=== PATIENT | male | born 1975 | race Caucasian/White ===

== ENCOUNTER 2021-02-07 16:27 | Observation (INO) | payer BC ==
[2021-02-07 17:00] LABS: Absolute Lymphocytes (CBC) 2.2 K/uL (0.7-4.9); Basophils % 1.3 % (0-1.3); Hematocrit 38.6 % (39.6-49.0); Lymphocytes % 31.1 % (15.3-44.8); MPV 9.5 fL (7.6-11.3); RBC Red Blood Cell Count 4.44 M/uL (4.33-5.43)
[2021-02-07 17:05] LABS: Protime INR 1.08
[2021-02-07 17:10] LABS: Urine Blood Negative (Negative); Urine Glucose 1+ (Negative); Urine Protein Negative (Negative); Urine Specific Gravity 1.025 (1.005-1.030); Urine pH 5.5 (5.0-7.0)
[2021-02-07 17:18] LABS: Albumin 4.2 g/dL (3.4-5.0); Bilirubin Direct 0.2 mg/dL (0-0.2); Bilirubin Total 0.7 mg/dL (0.2-1.0); Magnesium 1.8 mg/dL (1.8-2.4); Potassium 3.2 mmol/L (3.5-5.1); Protein, Total 7.4 g/dL (6.4-8.2); Troponin (Emerg Dept Use Only) 0.02 ng/mL (0.0-0.045)
[2021-02-07] MEDS ORDERED: ASPIRIN 81 MG CHEWABLE TABLET ONE (17:23)
[2021-02-07] MEDS ORDERED: NA CHLORIDE 0.9% 1,000 ML ONE ×2 (17:24→19:08)
[2021-02-07 17:25] LABS: Barbiturates NEGATIVE (NEGATIVE); Benzodiazepines NEGATIVE (NEGATIVE); Cocaine NEGATIVE (NEGATIVE); METHAMPHETAM NEGATIVE (NEGATIVE); Methadone NEGATIVE (NEGATIVE); Opiates NEGATIVE (NEGATIVE); Phencyclidine NEGATIVE (NEGATIVE); THC Cannibis NEGATIVE (NEGATIVE)
[2021-02-07 17:40] LABS: T3 Free 3.27 pg/mL (2.18-3.98); Thyroid Stimulating Hormone 0.74 uIU/mL (0.360-3.740)
--- NOTE | 2021-02-07 18:17 | RAD REPORT ---
EXAM DESCRIPTION: RAD - Chest Single View - 02/07/2021 5:23 pm CLINICAL HISTORY: PALPITATIONS COMPARISON: None TECHNIQUE: AP portable chest image was obtained 02/07/2021 5:23 pm . FINDINGS: Lungs are clear. Heart and vasculature are normal. No measurable pleural effusion and no p neumothorax. No acute bony abnormality seen. No acute aortic findings suspected. IMPRESSION: No acute cardiopulmonary process.
[2021-02-07] MEDS ORDERED: POTASSIUM 25 MEQ EFFERV TAB ONE (18:26)
--- NOTE | 2021-02-07 18:44 | ER ---
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 Coronavirus tc5 screen: Vaccine status: Patient reports being unvaccinated. At this time, the client does not indicate any symptoms associated with coronavirus-19. Ebola Screen: No symptoms or risks identified at this time. Risk Assessment: Do you want to hurt yourself or someone else? Patient reports no desire to harm self or others. Onset of symptoms was February 07, 2021 at 15:30. Care prior to arrival: 20g LAC per EMS. 17:39 Method Of Arrival: EMS: [facility] tc5 17:39 Acuity: GISSELLE 3 tc5 Triage Assessment: 17:44 General: Appears in no apparent distress. Behavior is calm, cooperative, appropriate tc5 for age. Pain: Denies pain. Historical: - Allergies: 17:42 PENICILLINS; tc5 17:42 Aleve; tc5 - PMHx: 17:42 Hypertensive disorder; Diabetes mellitus; tc5 17:43 Hypercholesterolemia; tc5 - Immunization history:: Adult Immunizations up to date, Client reports having NOT received the Covid vaccine. Last tetanus immunization: up to date. - Social history:: Smoking status: Patient reports use of chewing tobacco. Patient denies any tobacco usage or history of. Screenin:46 Abuse screen: Denies threats or abuse. Denies injuries from another. Nutritional tc5 screening: No deficits noted. Tuberculosis screening: No symptoms or risk factors identified. Fall Risk None identified. Assessment: 17:46 Reassessment: Patient appears in no apparent distress at this time. No changes from tc5 previously documented assessment. 19:38 Reassessment: Pt sitting up in bed, waiting further orders. VSS, pt voices no needs at dc2 this time. Continue to monitor. In nad. at side. 20:58 Reassessment: Attempt to call report , Ory is unavailable and will call back. dc2 Vital Signs: 17:39 BP 146 / 89; Pulse 100; Resp 18; Temp 98.4; Pulse Ox 100% ; Weight 90.72 kg; Height 6 tc5 ft. 3 in. (190.50 cm); Pain 0/10; 17:45 BP 135 / 91; Pulse 90; Resp 16; Pulse Ox 97% ; tc5 20:00 BP 138 / 94; Pulse 81; Resp 17; Temp 98.0; Pulse Ox 100% ; Pain 0/10; dc2 22:00 BP 139 / 85; Pulse 79; Resp 18; Temp 98.0; Pulse Ox 99% ; Pain 0/10; dc2 17:39 Body Mass Index 25.00 (90.72 kg, 190.50 cm) tc5 ED Course: 16:37 Patient arrived in ED. eb 16:37 Kd Burks PA is PHCP. cp 16:37 Robin Olsen MD is Attending Physician. cp 16:45 Mary Cha RN is Primary Nurse. tc5 17:23 XRAY Chest (1 view) In Process Unspecified. EDMS 17:37 Basic Metabolic Panel Sent. tc5 17:41 Triage completed. tc5 18:43 Cory Keith PA is Hospitalizing Provider. cp 19:38 Patient has correct armband on for positive identification. Placed in gown. Bed in low dc2 position. Call light in reach. Side rails up X 1. 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 Pulse ox on. NIBP on. 19:38 Door closed. Lights dimmed. dc2 19:38 Arm band placed on. dc2 21:00 No apparent distress. dc2 21:00 Awaiting bed assignment. Room 218. dc2 22:01 No provider procedures requiring assistance completed. dc2 22:01 IV Converted IV to saline lock on left antecubital area dc2 Administered Medications: 17:00 Drug: Aspirin Chewable Tablet 324 mg Route: PO; tc5 18:38 Follow up: Response: No adverse reaction tc5 17:00 Drug: NS 0.9% 1000 ml Route: IV; Rate: 1 bolus; Site: left antecubital; tc5 18:38 Follow up: IV Status: Completed infusion; IV Intake: 1000ml tc5 18:01 Drug: Potassium Effervescent Tablet 50 mEq Route: PO; tc5 18:38 Follow up: Response: No adverse reaction tc5 18:47 Drug: NS 0.9% 1000 ml Route: IV; Rate: 1000 ml/hr; Site: left antecubital; tc5 19:47 Follow up: IV Status: Completed infusion; IV Intake: 1000ml dc2 Intake: 18:38 IV: 1000ml; Total: 1000ml. tc5 19:47 IV: 1000ml; Total: 2000ml. dc2 Outcome: 18:43 Decision to Hospitalize by Provider. cp 22:00 Admitted to Tele accompanied by tech, via wheelchair, room 218, with chart, Report dc2 called to Ory 22:00 Condition: stable 22:00 Instructed on the need for admit. 22:01 Patient left the ED. dc2 Signatures: Dispatcher [employer] EDMS Kd Burks PA PA cp Botello, Elizabeth eb Charters, Denise, RN RN dc2 Mary Cha RN RN tc5
--- NOTE | 2021-02-07 18:44 | EDPHYS ---
Physician Documentation [facility] Name: Cordell Jurado Age: 45 yrs Sex: Male : 1975 Arrival Date: 02/07/2021 Time: 16:37 Bed 17 Private MD: ED Physician Robin Olsen HPI: 02/07 16:45 This 45 yrs old Male presents to ER via EMS with complaints of Dizziness and cp Palpitations. 16:45 The patient presents with a history of heart racing. Context: The symptoms occur while cp walking at work. Onset: The symptoms/episode began/occurred just prior to arrival. Duration: The patient or guardian reports a single episode, that is still ongoing, but improving. Associated signs and symptoms: Pertinent positives: near-syncope, dizziness, Pertinent negatives: chest pain, cough, fever, SOB, vomiting. Severity of symptoms: in the emergency department the symptoms have improved mildly. Historical: - Allergies: 17:42 PENICILLINS; tc5 17:42 Aleve; tc5 - PMHx: 17:42 Hypertensive disorder; Diabetes mellitus; tc5 17:43 Hypercholesterolemia; tc5 - Immunization history:: Adult Immunizations up to date, Client reports having NOT received the Covid vaccine. Last tetanus immunization: up to date. - Social history:: Smoking status: Patient reports use of chewing tobacco. Patient denies any tobacco usage or history of. ROS: 16:47 Constitutional: Negative for body aches, chills, fever, poor PO intake. cp 16:47 Eyes: Negative for injury, pain, redness, and discharge. cp 16:47 ENT: Negative for ear pain, sore throat, difficulty swallowing, difficulty handling secretions. 16:47 Cardiovascular: Positive for palpitations, Negative for chest pain, edema. 16:47 Respiratory: Negative for cough, shortness of breath, wheezing. 16:47 Abdomen/GI: Negative for abdominal pain, nausea, vomiting, and diarrhea, black/tarry stool, rectal bleeding. 16:47 Neuro: Positive for dizziness, near syncope, Negative for altered mental status, speech changes, weakness. 16:47 All other systems are negative. Exam: 16:48 ECG was reviewed by the Attending Physician. cp 16:50 Constitutional: The patient appears in no acute distress, alert, awake, cp non-diaphoretic, non-toxic, well developed, well nourished. 16:50 Head/Face: Normocephalic, atraumatic. cp 16:50 Eyes: Periorbital structures: appear normal, Pupils: equal, round, and reactive to light and accomodation, Extraocular movements: intact throughout, Conjunctiva: normal, no exudate, no injection, Sclera: no appreciated abnormality, Lids and lashes: appear normal, bilaterally. 16:50 ENT: External ear(s): are unremarkable, Nose: is normal, Mouth: Lips: moist, Oral mucosa: pink and intact, moist, Posterior pharynx: Airway: no evidence of obstruction, patent. 16:50 Neck: ROM/movement: is normal, is supple, without pain, no range of motions limitations, no nuchal rigidity. 16:50 Chest/axilla: Inspection: normal, Palpation: is normal, no crepitus, no tenderness. 16:50 Cardiovascular: Rate: tachycardic, Rhythm: regular, Heart sounds: murmur, not appreciated, Edema: is not appreciated, JVD: is not appreciated. 16:50 Respiratory: the patient does not display signs of respiratory distress, Respirations: normal, no use of accessory muscles, no retractions, labored breathing, is not present, Breath sounds: are clear throughout, no decreased breath sounds, no stridor, no wheezing. 16:50 Abdomen/GI: Inspection: abdomen appears normal, Palpation: abdomen is soft and non-tender, in all quadrants. 16:50 Back: pain, is absent, ROM is normal. 16:50 Neuro: Orientation: to person, place \T\ time. Mentation: is normal, Cerebellar function: is grossly normal, Motor: moves all fours, strength is normal, Sensation: is normal. Vital Signs: 17:39 BP 146 / 89; Pulse 100; Resp 18; Temp 98.4; Pulse Ox 100% ; Weight 90.72 kg; Height 6 tc5 ft. 3 in. (190.50 cm); Pain 0/10; 17:45 BP 135 / 91; Pulse 90; Resp 16; Pulse Ox 97% ; tc5 20:00 BP 138 / 94; Pulse 81; Resp 17; Temp 98.0; Pulse Ox 100% ; Pain 0/10; dc2 22:00 BP 139 / 85; Pulse 79; Resp 18; Temp 98.0; Pulse Ox 99% ; Pain 0/10; dc2 17:39 Body Mass Index 25.00 (90.72 kg, 190.50 cm) tc5 MDM: 16:42 Patient medically screened. cp 17:00 Differential diagnosis: arrythmia, stress disorder, acute HI. cp 18:45 Data reviewed: vital signs, nurses notes, lab test result(s), EKG, radiologic studies, cp plain films. 18:45 Test interpretation: by ED physician or midlevel provider: ECG, plain radiologic cp studies. Counseling: I had a detailed discussion with the patient and/or guardian regarding: the historical points, exam findings, and any diagnostic results supporting the discharge/admit diagnosis, lab results, radiology results, the need for further work-up and treatment in the hospital. Physician consultation: Cory MEEK was called at 18:35, was contacted at 18:35, regarding admission, to the telemetry unit. patient's condition, and will see patient in ED, shortly. 02/07 16:38 Order name: Basic Metabolic Panel cp 02/07 16:38 Order name: CBC with Diff; Complete Time: 17:36 cp 02/07 17:36 Interpretation: Normal except: HGB 13.4; HCT 38.6. cp 02/07 16:38 Order name: LFT's; Complete Time: 17:36 cp 02/07 16:38 Order name: Magnesium; Complete Time: 17:36 cp 02/07 16:38 Order name: NT PRO-BNP; Complete Time: 17:36 cp 02/07 16:38 Order name: PT-INR; Complete Time: 17:36 cp 02/07 16:38 Order name: Troponin (emerg Dept Use Only); Complete Time: 17:36 cp 02/07 16:38 Order name: CK; Complete Time: 17:36 cp 02/07 17:36 Interpretation: Abnormal: CPK 403. cp 02/07 16:39 Order name: Basic Metabolic Panel; Complete Time: 17:36 EDMS 02/07 17:36 Interpretation: Normal except: K 3.2; GLUC 178; GFR 69. cp 02/07 16:42 Order name: UDS; Complete Time: 17:36 cp 02/07 16:58 Order name: TSH; Complete Time: 18:31 cp 02/07 16:58 Order name: T3 Free; Complete Time: 18:31 cp 02/07 16:58 Order name: D-Dimer; Complete Time: 17:36 cp 02/07 16:38 Order name: XRAY Chest (1 view); Complete Time: 18:31 cp 02/07 16:38 Order name: EKG; Complete Time: 16:39 cp 02/07 16:38 Order name: Cardiac monitoring; Complete Time: 16:46 cp 02/07 16:38 Order name: EKG - Nurse/Tech; Complete Time: 16:46 cp 02/07 16:38 Order name: IV Saline Lock; Complete Time: 16:46 cp 02/07 16:38 Order name: Labs collected and sent; Complete Time: 16:46 cp 02/07 16:38 Order name: O2 Per Protocol; Complete Time: 16:46 cp 02/07 16:38 Order name: O2 Sat Monitoring; Complete Time: 16:46 cp 02/07 16:38 Order name: Accucheck Blood Glucose; Complete Time: 18:47 cp 02/07 17:10 Order name: Urine Dipstick-Ancillary; Complete Time: 17:36 EDMS 02/07 17:17 Order name: SARS-COV-2 RT PCR; Complete Time: 18:31 EDMS 02/07 18:54 Order name: CONS Physician Consult EDMS EC:48 Rate is 110 beats/min. Rhythm is regular. FL interval is normal. QRS interval is cp normal. QT interval is normal. Interpreted by me. Reviewed by me. Administered Medications: 17:00 Drug: Aspirin Chewable Tablet 324 mg Route: PO; tc5 18:38 Follow up: Response: No adverse reaction tc5 17:00 Drug: NS 0.9% 1000 ml Route: IV; Rate: 1 bolus; Site: left antecubital; tc5 18:38 Follow up: IV Status: Completed infusion; IV Intake: 1000ml tc5 18:01 Drug: Potassium Effervescent Tablet 50 mEq Route: PO; tc5 18:38 Follow up: Response: No adverse reaction tc5 18:47 Drug: NS 0.9% 1000 ml Route: IV; Rate: 1000 ml/hr; Site: left antecubital; tc5 19:47 Follow up: IV Status: Completed infusion; IV Intake: 1000ml dc2 Disposition Summary: 02/07/21 18:43 Hospitalization Ordered Hospitalization Status: Observation cp Provider: Cory Keith cp Condition: Stable cp Problem: new cp Symptoms: have improved cp Bed/Room Type: Standard cp Location: Telemetry/MedSurg (observation)(02/07/21 19:42) Room Assignment: 218(02/07/21 19:42) mw Diagnosis - Syncope Near cp - Palpitations cp Forms: - Medication Reconciliation Form cp - SBAR form cp Addendum: 02/11/2021 01:56 Co-signature as Attending Physician, Robin Olsen MD I agree with the assessment and r n plan of care. Attestation: The patient's history, exam findings, diagnostics, and a summary of any interventions or procedures was reviewed in detail with Kd MEEK. Signatures: Dispatcher [employer] EDAK Shahnaz Harry RN RN mw Nieto, Roman, MD MD rn Page, Corey, PA PA cp Cassaboom, Theresa, RN RN tc5 Rick, Lucy RN dc2 Corrections: (The following items were deleted from the chart) 02/07 17:17 16:40 CORONAVIRUS+MR.LAB.BRZ ordered. EDAK EDAK 19:42 18:43 Telemetry/MedSurg (observation) [facility] 19:42 18:43 cp 02/08 04:35 02/07 16:55 This 45 yrs old Male presents to ER via EMS with complaints of cp Dizziness and Palpitations. cp
--- NOTE | 2021-02-07 19:56 | P.HP ---
Certification for Inpatient Patient admitted to: Observation With expected LOS: <2 Midnights Patient will require the following post-hospital care: None Practitioner: I am a practitioner with admitting privileges, knowledge of patient current condition, hospital course, and medical plan of care. Services: Services provided to patient in accordance with Admission requirements found in Title 42 Section 412.3 of the Code of Federal Regulations Patient History Date of Service: 02/07/21 Primary Care Provider: Antonio Reason for admission: palpitations, presyncope History of Present Illness: Mr. Jurado is a 45 yo M with DM, HTN, HLD who presents with an episode of palpitations and presyncope. He said he was walking when he got dizzy and his vision went black for half a second. He felt disoriented and short of breath. He sat down and symptoms improved after a few minutes. He says he felt 6-8 abnormal heart beats and the entire episode lasted 3 minutes. This has happened in the past but never this severe. Denies chest pain, nausea, vomiting. He does work outside, but drinks several bottles of water daily at the [employer]. K 3.2, Glu 178, CK 403. Received ASA, potassium and IVF in the ED. - Past Medical/Surgical History -: HTN -: DM -: HLD -: torn bicep -: hernia repair - Family History Mother -: Diabetes Father -: Heart disease, Diabetes, Cancer - Social History Smoking Status: Current every day smoker (chews tobacco) Alcohol use: Yes CD- Drugs: No Caffeine use: Yes Place of Residence: Home Review of Systems 10-point ROS is otherwise unremarkable Respiratory: Shortness of Breath Cardiovascular: Palpitations, Light Headedness Physical Examination - Physical Exam General: Alert, In no apparent distress HEENT: Atraumatic, PERRLA, Mucous membr. moist/pink, EOMI, Sclerae nonicteric Neck: Supple, 2+ carotid pulse no bruit, No LAD, Without JVD or thyroid abnormality Respiratory: Clear to auscultation bilaterally, Normal air movement Cardiovascular: Regular rate/rhythm, Normal S1 S2 Gastrointestinal: Normal bowel sounds, No tenderness Musculoskeletal: No tenderness Integumentary: No rashes Neurological: Normal gait, Normal speech, Normal strength at 5/5 x4 extr, Normal tone, Normal affect Lymphatics: No axilla or inguinal lymphadenopathy - Studies Laboratory Data (last 24 hrs) 02/07/21 16:45: PT 12.4, INR 1.08 02/07/21 16:45: WBC 7.20, Hgb 13.4 L, Hct 38.6 L, Plt Count 207 02/07/21 16:45: Sodium 140, Potassium 3.2 L, BUN 16, Creatinine 1.16, Glucose 178 H, Magnesium 1.8, Total Bilirubin 0.7, AST 19, ALT 45, Alkaline Phosphatase 50 Assessment and Plan - Problems (Diagnosis) (1) Palpitations Current Visit: Yes Status: Acute (2) HTN (hypertension) Current Visit: Yes Status: Chronic Qualifiers: Hypertension type: primary hypertension Qualified Code(s): I10 - Essential (primary) hypertension (3) T2DM (type 2 diabetes mellitus) Current Visit: Yes Status: Chronic Qualifiers: Diabetes mellitus fdc insulin use: without fdc use Diabetes mellitus complication status: without complication Qualified Code(s): E11.9 - Type 2 diabetes mellitus without complications (4) HLD (hyperlipidemia) Current Visit: Yes Status: Chronic Qualifiers: Hyperlipidemia type: unspecified Qualified Code(s): E78.5 - Hyperlipidemia, unspecified - Plan on tele, cardiology consulted orthostatics VS now, trend troponins, repeat ekg hydralazine PRN for BP potassium replacement protocol reconcile and continue home medications DVT ppx Discharge Plan: Home Plan to discharge in: 24 Hours - Advance Directives Does patient have a Living Will: No Does patient have a Durable POA for Healthcare: No - Code Status/Comfort Care Code Status Assessed: Yes (full code ) Critical Care: No Time Spent Managing Pts Care (In Minutes): 70
[2021-02-07 22:17] VITALS: BMI 31.5
[2021-02-07] MEDS ORDERED: ACETAMINOPHEN 500 MG TAB PO PRN (22:23)
[2021-02-07] MEDS ORDERED: HYDRALAZINE HCL 20 MG/ML VIAL IV PRN (22:23)
[2021-02-07] MEDS ORDERED: FEXOFENADINE 180 MG TAB PO PRN (22:23)
[2021-02-07] MEDS ORDERED: ONDANSETRON 4 MG/2 ML VIAL IV PRN (22:23)
[2021-02-07] MEDS ORDERED: METFORMIN HCL 500 MG TAB PO ONE (22:23)
[2021-02-07 22:35] VITALS: O2SAT 99
[2021-02-08 04:05] LABS: Absolute Lymphocytes (CBC) 2.3 K/uL (0.7-4.9); Basophils % 1.2 % (0-1.3); Hematocrit 36.2 % (39.6-49.0); Lymphocytes % 37.7 % (15.3-44.8); MPV 9.6 fL (7.6-11.3); RBC Red Blood Cell Count 4.18 M/uL (4.33-5.43)
[2021-02-08 04:28] LABS: Albumin 3.7 g/dL (3.4-5.0); Bilirubin Total 0.4 mg/dL (0.2-1.0); CKMB Creatine Kinase MB 1.4 ng/mL (1.0-3.6); Phosphorus 4.1 mg/dL (2.5-4.9); Potassium 3.4 mmol/L (3.5-5.1); Protein, Total 6.6 g/dL (6.4-8.2)
--- NOTE | 2021-02-08 07:05 | EKG ---
Test Date: 2021-02-07 Test Time: 16:41:05 Gear Cutting Machine Operator: LAKISHA MEASUREMENT RESULTS: Intervals: Rate: 118 MI: 182 QRSD: 94 QT: 314 QTc: 440 [place]: P: 57 MI: 182 QRS: 59 T: -52 INTERPRETIVE STATEMENTS: Sinus tachycardia Inferior infarct, age undetermined Cannot rule out Anterior infarct, age undetermined Abnormal ECG Compared to ECG 02/07/2021 16:39:47 Myocardial infarct finding now present Electronically Signed On 02-08-21 07:04:31 CDT by Ej Marina
--- NOTE | 2021-02-08 07:05 | EKG ---
Test Date: 2021-02-07 Test Time: 16:39:47 Tiller Man: LAKISHA MEASUREMENT RESULTS: Intervals: Rate: 112 TN: 192 QRSD: 96 QT: 324 QTc: 442 [place]: P: 50 TN: 192 QRS: 24 T: 16 INTERPRETIVE STATEMENTS: Sinus tachycardia Otherwise normal ECG Compared to ECG 12/28/1998 22:26:00 ST (T wave) deviation no longer present Electronically Signed On 02-08-21 07:04:32 CDT by Ej Marina
[2021-02-08] MEDS ORDERED: PNEUMOCOCCAL VACCINE 0.5 ML IMVAC ONE ×2 (08:00→12:00)
[2021-02-08] MEDS ORDERED: hydroCHLOROthiazide 25 MG TAB PO SCH (09:00)
[2021-02-08] MEDS ORDERED: ASPIRIN EC 81 MG TAB PO SCH (09:00)
[2021-02-08] MEDS ORDERED: ATORVASTATIN 40 MG TAB PO SCH (09:00)
[2021-02-08] MEDS ORDERED: lisinopriL 20 MG TAB PO SCH (09:00)
[2021-02-08] MEDS ORDERED: ENOXAPARIN 40 MG/0.4 ML SQ SCH (09:00)
[2021-02-08 10:06] VITALS: BP 154/84; TEMP 97.6
--- NOTE | 2021-02-08 10:51 | P.DS ---
Admission Date: 02/07/21 Discharge Date: 02/08/21 Primary Care Provider: Antonio Disposition: ROUTINE DISCHARGE Discharge Condition: FAIR Reason for Admission: palpitations, presyncope - Problems (1) Palpitations Status: Acute (2) HLD (hyperlipidemia) Status: Chronic Qualifiers: Hyperlipidemia type: unspecified Qualified Code(s): E78.5 - Hyperlipidemia, unspecified (3) HTN (hypertension) Status: Chronic Qualifiers: Hypertension type: primary hypertension Qualified Code(s): I10 - Essential (primary) hypertension (4) T2DM (type 2 diabetes mellitus) Status: Chronic Qualifiers: Diabetes mellitus residential insulin use: without moth exterminator use Diabetes mellitus complication status: without complication Qualified Code(s): E11.9 - Type 2 diabetes mellitus without complications Brief History of Present Illness: 45 yo M with DM, HTN, HLD presented with an episode of palpitations and presyncope. He got dizzy and his vision went black for half a second while walking. He felt disoriented and short of breath. He sat down and symptoms improved after a few minutes. He reported feeling abnormal heartbeat. Patient reported previous episodes in the past. He denied chest pain. Initial troponin. EKG demonstrated sinus tachycardia. Chest x-ray showed no acute disease. Patient placed under observation for further evaluation. Hospital Course: His troponin trended negative. Cardiac monitoring was unremarkable. Patient seen by cardiology. ACS ruled out. Dr. Marina plans to follow him as an outpatient for echocardiogram, stress test and event monitor. Patient's vitals are stable and currently has no complain. He is discharged to follow with Dr. Marina as planned. Vital Signs/Physical Exam: Temp Pulse Resp BP Pulse Ox 97.6 F 69 15 154/84 H 100 02/08/21 08:00 02/08/21 08:00 02/08/21 08:00 02/08/21 08:00 02/08/21 08:00 General: Alert, In no apparent distress, Oriented x3 HEENT: Mucous membr. moist/pink Neck: Supple, JVD not distended Respiratory: Clear to auscultation bilaterally, Normal air movement Cardiovascular: No edema, Regular rate/rhythm, Normal S1 S2 Gastrointestinal: Normal bowel sounds, Soft and benign, Non-distended, No tenderness Musculoskeletal: No swelling Integumentary: No rashes Neurological: Normal strength at 5/5 x4 extr Laboratory Data at Discharge: WBC 6.10 K/uL (4.3-10.9) D 02/08/21 02:57 Hgb 12.5 g/dL (13.6-17.9) L 02/08/21 02:57 Hct 36.2 % (39.6-49.0) L 02/08/21 02:57 Plt Count 168 K/uL (152-406) 02/08/21 02:57 PT 12.4 SECONDS (9.5-12.5) 02/07/21 16:45 INR 1.08 02/07/21 16:45 Sodium 142 mmol/L (136-145) 02/08/21 02:57 Potassium 3.4 mmol/L (3.5-5.1) L 02/08/21 02:57 BUN 13 mg/dL (7-18) 02/08/21 02:57 Creatinine 0.92 mg/dL (0.55-1.3) 02/08/21 02:57 Glucose 156 mg/dL (74-106) H 02/08/21 02:57 Phosphorus 4.1 mg/dL (2.5-4.9) 02/08/21 02:57 Magnesium 2.0 mg/dL (1.8-2.4) 02/08/21 02:57 Total Bilirubin 0.4 mg/dL (0.2-1.0) 02/08/21 02:57 AST 19 U/L (15-37) 02/08/21 02:57 ALT 38 U/L (12-78) 02/08/21 02:57 Alkaline Phosphatase 44 U/L (45-117) L 02/08/21 02:57 Troponin I 0.04 ng/mL (0.0-0.045) 02/08/21 02:57 Triglycerides 118 mg/dL (<150) 02/08/21 02:57 Cholesterol 99 mg/dL (<200) 02/08/21 02:57 HDL Cholesterol 34 mg/dL (40-60) L 02/08/21 02:57 Cholesterol/HDL Ratio 2.91 02/08/21 02:57 Home Medications: Atorvastatin Calcium 20 mg PO QPBBP3DA 02/08/21 Fexofenadine HCl [Debora Allergy] 180 mg PO DAILY 02/08/21 Lisinopril/Hydrochlorothiazide [Lisinopril-Hctz 20-12.5 mg Tab] 20 mg PO DAILY 02/08/21 Metformin HCl [Glumetza] 1,000 mg PO BID 02/08/21 Followup: RICHARDSON AMAYA-A [Primary Care Provider] - Ej Marina MD [ACTIVE - CAN ADMIT] - 1 Week (For arrangement for echocardiogram, stress test and event monitor.)
--- NOTE | 2021-02-08 12:44 | CON ---
Date of Consultation: 02/08/2021 Reason For Consultation: The patient came in with presyncope. History Of Present Illness: Mr. Jurado is a 45-year-old male with history of hypertension, diabetes, dyslipidemia, and a strong family history of heart disease. Came in with an episode of dizziness, l ightheadedness, presyncope. No nausea, vomiting, diaphoresis, PND, orthopnea, pedal edema, or palpit ation. Denied any chest pain. Has ruled out for an MD. His CPK was 403 with negative MB, negative troponin. Glucose was 178. He was hypokalemic at 3.2. Allergies: HE IS ALLERGIC TO PENICILLIN AND ALEVE. Review of Systems: Negative. Social History: Negative. Family History: Positive for heart disease in his dad and uncle. Medications: At home include lisinopril, metformin, and Zocor. Physical Examination: Vital Signs: Stable, afebrile. HEENT: Negative. Neck: Supple with no bruit. Chest: Clear. Cardiac: Revealed a regular rhythm and rate. No murmurs, gallops, or rubs. Abdomen: Benign. Extremities: Revealed no clubbing, cyanosis, or edema. Diagnostic Data: As stated earlier. EKG is normal. Chest x-ray is normal. Impression And Plan: Presyncope, most likely secondary to orthostatic hypotension. The episode happ ened when he was standing up. Could have been secondary to hypokalemia. He did have some palpitatio ns prior to his presyncopal episode. I think he needs to have an echocardiogram and outpatient MPI a nd outpatient event monitor. I would correct his potassium, hydrate him, consider use of a low-dose beta verito in addition to lisinopril. He can go home and I will see him as an outpatient in the [facility] near future. His blood pressure, diabetes, and dyslipidemia are fairly well controlled. NB/MODL Voice ID: [id number] Report ID: [id number]
== END 2021-02-08 11:45 | disposition home or self-care (01) ==
LOC: ER 16:27 → ERHOLD 18:51 → 2ND 21:48
PROVIDERS: ADMIT Internal Medicine; ATTEND Internal Medicine
DX: R00.2 Palpitations (principal); I95.1 Orthostatic hypotension; E87.6 Hypokalemia; I10 Essential (primary) hypertension; E11.9 Type 2 diabetes mellitus without complications; E78.5 Hyperlipidemia, unspecified; E78.00 Pure hypercholesterolemia, unspecified; F17.220 Nicotine dependence, chewing tobacco, uncomplicated; Z20.822 Contact with and (suspected) exposure to COVID-19; Z88.0 Allergy status to penicillin; Z88.6 Allergy status to analgesic agent; Z82.49 Family history of ischemic heart disease and other diseases of the circulatory system; Z83.3 Family history of diabetes mellitus; Z80.9 Family history of malignant neoplasm, unspecified
CPT/HCPCS: 96361; 93005 ×2; 85025 ×2; 80048; 36415; 83735 ×2; 82550 ×2; 84100; 85610; 80061; 82947 ×2; 85379; 80076; 84443; 81003; 84484 ×3; 82553; 84481; 84439; 80053; 83880; 80307; 71045; 94760 ×2; 96360; 99285; U0003; J7030 ×2; G0378 ×3; J1650